=== PATIENT | female | born 2000 | race Caucasian/White ===

== ENCOUNTER 2021-03-26 12:20 | Inpatient (IN) | payer BC ==
--- NOTE | 2021-03-26 14:12 | ED ---
General Adult HPI - General Stated complaint: Mental Health Time Seen by Provider: 03/26/21 12:54 Source: patient, RN notes reviewed, old records reviewed - History of Present Illness Initial comments: 20-year-old female presenting for mental health evaluation. Patient has had suicidal thoughts. She has been hearing voices. She is accompanied by her mother and father. No physical complaints at this time but the patient states that several weeks ago she did have a fall. The exact details of this fall are not known but there may have been head trauma and family is requesting imaging. Patient denies suicide attempt. - Related Data Home Medications Medication Instructions Recorded Confirmed No Known Home Medications 03/26/21 03/26/21 Allergies Allergy/AdvReac Type Severity Reaction Status Date / Time eggplant Allergy Unknown Verified 03/26/21 14:46 nut - unspecified Allergy Unknown Verified 03/26/21 14:46 Review of Systems ROS Statement: Those systems with pertinent positive or pertinent negative responses have been documented in the HPI. ROS Other: All systems not noted in ROS Statement are negative. Past Medical History - Past Family History Mother Family Medical History: Hypertension General Exam General appearance: alert Head exam: Present: atraumatic, normocephalic Eye exam: Present: normal appearance, PERRL ENT exam: Present: normal exam Neck exam: Present: normal inspection. Absent: tenderness, meningismus Respiratory exam: Present: normal lung sounds bilaterally. Absent: respiratory distress, wheezes Cardiovascular Exam: Present: regular rate, normal rhythm GI/Abdominal exam: Present: soft. Absent: distended, tenderness, guarding Extremities exam: Present: normal inspection, normal capillary refill. Absent: pedal edema Neurological exam: Present: alert, oriented X3, CN II-XII intact. Absent: motor sensory deficit Psychiatric exam: Present: flat affect, suicidal ideation, other (Paranoid) Skin exam: Present: warm, dry, intact Course Vital Signs 03/26/21 03/26/21 14:01 19:27 Temperature 98.3 F Pulse Rate 70 Respiratory 18 18 Rate Blood Pressure 109/81 O2 Sat by Pulse 98 Oximetry - Reevaluation(s) Reevaluation #1: 03/26/21 1500 Patient's care is signed out to Dr. Reina at shift change awaiting EPS evaluation and recommendations. Medical Decision Making - Medical Decision Making By review the medical record it appears this patient was admitted to the psychiatric unit. - Lab Data Result diagrams: 03/28/21 11:09 03/28/21 11:09 Lab Results 03/26/21 03/26/21 Range/Units 13:48 13:48 Urine HCG, Qual Not Detected (Not Detectd) Urine Opiates Screen Not Detected (NotDetected) Ur Oxycodone Screen Not Detected (NotDetected) Urine Methadone Screen Not Detected (NotDetected) Ur Propoxyphene Screen Not Detected (NotDetected) Ur Barbiturates Screen Not Detected (NotDetected) U Tricyclic Antidepress Not Detected (NotDetected) Ur Phencyclidine Scrn Not Detected (NotDetected) Ur Amphetamines Screen Not Detected (NotDetected) U Methamphetamines Scrn Not Detected (NotDetected) U Benzodiazepines Scrn Not Detected (NotDetected) Urine Cocaine Screen Not Detected (NotDetected) U Marijuana (THC) Screen Detected H (NotDetected) Disposition Clinical Impression: Acute psychosis, Depression Disposition: ADMITTED IP TO THIS [facility] Condition: Stable Is patient prescribed a controlled substance at d/c from ED?: No
[2021-03-26 14:41] LABS: Phencyclidine Screen,Urine Not Detected (NotDetected); Urn Cannabinoid Scrn Detected (NotDetected)
[2021-03-26 14:42] LABS: Amphetamine Screen,Urine Not Detected (NotDetected); Barbiturate Screen,Urine Not Detected (NotDetected); Benzodiazepines Screen,Urine Not Detected (NotDetected); Cocaine Screen,Urine Not Detected (NotDetected); Methadone Screen, Urine Not Detected (NotDetected); Opiate Screen,Urine Not Detected (NotDetected); Oxycodone Screen, Urine Not Detected (NotDetected); Tricyclic Antidepressant,Urine Not Detected (NotDetected)
--- NOTE | 2021-03-26 17:30 | CT ---
EXAMINATION TYPE: CT brain wo con DATE OF EXAM: 03/26/2021 HISTORY: Mental health, Fall. CT DLP: 1023.4 mGycm. Automated Exposure Control for Dose Reduction was Utilized. TECHNIQUE: CT scan of the head is performed without contrast. COMPARISON: None FINDINGS: There is no acute intracranial hemorrhage, midline shift, or mass effect identified. No abnormal extr a-axial fluid collection. No ventriculomegaly. No depressed calvarial fracture. Paranasal sinuses and mastoid air cells are clear. IMPRESSION: No acute intracranial hemorrhage, midline shift, or mass effect.
[2021-03-27] MEDS ORDERED: MAG HYDROX/AL HYDROX/SIMETH 30 ML CUP PO PRN (00:02)
[2021-03-27] MEDS ORDERED: MAGNESIUM HYDROXIDE 2,400 MG/10 ML CUP PO PRN (00:02)
[2021-03-27] MEDS ORDERED: ACETAMINOPHEN TAB 325 MG TAB PO PRN (00:02)
[2021-03-27] MEDS ORDERED: LORazepam 2 MG/ML INJ IM PRN (00:04)
[2021-03-27] MEDS ORDERED: haloperidoL 5 MG TAB PO PRN (00:04)
[2021-03-27] MEDS ORDERED: HALOPERIDOL LACTATE 5 MG/ML 1 ML VIAL IM PRN (00:04)
[2021-03-27] MEDS: NICOTINE 14MG/24HR PATCH TRANSDERM SCH ×2 (03:52→08:16)
[2021-03-27] MEDS: LORazepam 1 MG TAB PO PRN (03:52)
[2021-03-27 14:34] VITALS: BMI 24.9
[2021-03-27 17:04] LABS: Basophils # (A) 0.1 k/uL (0-0.2); Basophils % (A) 1 %; Eosinophils # (A) 0.1 k/uL (0-0.7); Eosinophils % (A) 1 %; HCT 45.9 % (34.0-46.0); HGB 15.2 gm/dL (11.4-16.0); Lymphocytes # (A) 2.2 k/uL (1.0-4.8); Lymphocytes % (A) 24 %; MCH 28.3 pg (25.0-35.0); MCV 85.7 fL (80.0-100.0); Mean Platelet Volume 6.9; Monocytes # (A) 0.7 k/uL (0-1.0); Monocytes % (A) 8 %; Neutrophils # (A) 5.7 k/uL (1.3-7.7); Neutrophils % (A) 64 %; Platelet Count 348 k/uL (150-450); RBC 5.36 m/uL (3.80-5.40); RDW 13.6 % (11.5-15.5); WBC 8.9 k/uL (3.8-10.6)
[2021-03-27 17:24] LABS: ALT 17 U/L (4-34); AST 22 U/L (14-36); African American GFR (CKD) >90 (>60 ml/min/1.73 sqM); Albumin 4.7 g/dL (3.5-5.0); Alkaline Phosphatase 50 U/L (38-126); Anion Gap 11 mmol/L; Blood Urea Nitrogen 10 mg/dL (7-17); Calcium 9.9 mg/dL (8.4-10.2); Carbon Dioxide 27 mmol/L (22-30); Chloride 100 mmol/L (98-107); Glucose 99 mg/dL (74-99); Non-African American GFR(CKD) >90 (>60 ml/min/1.73 sqM); Potassium 4.4 mmol/L (3.5-5.1); Sodium 138 mmol/L (137-145); Total Bilirubin 1.2 mg/dL (0.2-1.3); Total Protein 7.7 g/dL (6.3-8.2)
[2021-03-27 17:38] LABS: T4, Free (Free Thyroxine) 1.17 ng/dL (0.78-2.19)
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
--- NOTE | 2021-03-27 21:04 | P.CONS ---
History of Present Illness - Reason for Consult Consult date: 03/27/21 - History of Present Illness The patient was seen and evaluated with the mental health unit RN. I was never alone with the patient. Patient is a 20-year-old female with a PMH of tobacco abuse and marijuana abuse who had presented to the emergency room due to hearing voices. The patient was admitted to the mental health unit where she was seen and evaluated. The patient reports that she has been having multiple voices that are telling her that she is worthless and that she should kill herself. She denied any suicide attempts and further denied any homicidal ideation. She denied any physical complaints. She denied chest discomfort, shortness of breath, fever, chills, cough, nausea, vomiting, abdominal pain, diarrhea. Reports vaping daily and smoking and rolled cigarettes as well. Also smokes marijuana daily. Denied any additional substance abuse. Denied alcohol use. Review of systems: Pertinent positives and negatives as discussed in HPI, a complete review of systems was performed and all other systems are negative. Physical examination: General: non toxic, no distress, appears at stated age, normal weight Derm: no unusual rashes/lesions no unusual ecchymoses, warm, dry Head: atraumatic, normocephalic, symmetric Eyes: EOMI, no lid lag, anicteric sclera, pupils equal round reactive to light ENT: Nose and ears atraumatic, no thrush, no pharyngeal erythema Neck: No thyromegaly, no cervical lymphadenopathy, trachea midline, supple Mouth: no lip lesion, mucus membranes moist Cardiovascular: S1S2 reg, no murmur, positive posterior tibial pulse bilateral, no edema, capillary refill less than 2 seconds Lungs: CTA bilateral, no rhonchi, no rales , no accessory muscle use Abdominal: soft, nontender to palpation, no guarding, no appreciable organomegaly, normal bowel sounds Ext: no gross muscle atrophy, muscle strength 5 out of 5 in all 4 extremities grossly, no contractures, Neuro: CN II-XI grossly intact, light touch intact all 4 extremities, finger to nose within normal limits, Psych: Alert, oriented, flat affect Assessment/plan Polysubstance abuse -Strongly advised on the dangers of vaping -Further advise on the importance of cessation from tobacco and marijuana use Psychosis with depression and suicidal ideation -As per psychiatry Thank you for allowing us to participate in the care of this patient. We will follow peripherally. Do not hesitate to contact us with questions. Someone can be reached from the [facility] hospitalist group at all hours of the day at [phone]. Past Medical History Past Medical History: No Reported History History of Any Multi-Drug Resistant Organisms: None Reported Past Surgical History: No Surgical Hx Reported Past Psychological History: Anxiety, Depression Smoking Status: Current every day smoker, Vaper Past Alcohol Use History: None Reported, Heavy Past Drug Use History: None Reported - Past Family History Mother Family Medical History: Hypertension Medications and Allergies Home Medications Medication Instructions Recorded Confirmed Type No Known Home Medications 03/26/21 03/26/21 History Allergies Allergy/AdvReac Type Severity Reaction Status Date / Time eggplant Allergy Unknown Verified 03/26/21 14:46 nut - unspecified Allergy Unknown Verified 03/26/21 14:46 Physical Exam Vitals: Vital Signs Temp Pulse Resp BP Pulse Ox 03/27/21 01:08 97.5 F L 96 18 119/55 96 Intake and Output 03/27/21 03/27/21 03/27/21 06:59 14:59 22:59 Other: Weight 70.1 kg 70.1 kg Results CBC & Chem 7: 03/27/21 16:35 03/27/21 16:35
[2021-03-28] MEDS: NICOTINE 14MG/24HR PATCH TRANSDERM SCH (08:28)
[2021-03-28 11:36] LABS: Basophils # (A) 0.1 k/uL (0-0.2); Basophils % (A) 1 %; Eosinophils # (A) 0.2 k/uL (0-0.7); Eosinophils % (A) 2 %; HCT 46.4 % (34.0-46.0); HGB 15.6 gm/dL (11.4-16.0); Lymphocytes # (A) 1.8 k/uL (1.0-4.8); Lymphocytes % (A) 19 %; MCH 28.9 pg (25.0-35.0); MCHC 33.6 g/dL (31.0-37.0); Mean Platelet Volume 7.4; Monocytes # (A) 0.7 k/uL (0-1.0); Monocytes % (A) 7 %; Neutrophils # (A) 6.5 k/uL (1.3-7.7); Neutrophils % (A) 69 %; Platelet Count 333 k/uL (150-450); RBC 5.39 m/uL (3.80-5.40); RDW 13.1 % (11.5-15.5); WBC 9.4 k/uL (3.8-10.6)
[2021-03-28 11:50] LABS: ALT 18 U/L (4-34); AST 22 U/L (14-36); African American GFR (CKD) >90 (>60 ml/min/1.73 sqM); Albumin 4.9 g/dL (3.5-5.0); Alkaline Phosphatase 56 U/L (38-126); Anion Gap 10 mmol/L; Blood Urea Nitrogen 13 mg/dL (7-17); Calcium 10.1 mg/dL (8.4-10.2); Carbon Dioxide 28 mmol/L (22-30); Chloride 101 mmol/L (98-107); Glucose 100 mg/dL (74-99); Non-African American GFR(CKD) >90 (>60 ml/min/1.73 sqM); Potassium 4.4 mmol/L (3.5-5.1); Sodium 139 mmol/L (137-145); Total Bilirubin 1.1 mg/dL (0.2-1.3)
--- NOTE | 2021-03-28 15:25 | PN ---
PROGRESS NOTE DATE OF SERVICE: 03/28/2021. CHIEF COMPLAINT: The patient was depressed. She had auditory hallucinations. She had a recent fall with possible head trauma. INTERVAL HISTORY: The patient has been doing fairly well. She had a quiet day yesterday. She comes out on the unit. She interacts with others. She has been appropriate in her interaction with staff and peers. She attended one group yesterday and seemed to find that it had some benefits for her. She slept fairly well last night. Today she has been up. She said that she has been processing information I discussed about medications and does think she needs to be on medications. It is noteworthy that when she came into the hospital when Nursing was doing their evaluation, she asked them to check her ears, nose and mouth for concerns that there might be some kind of electronics or other devices that may have been implanted to broadcast her thoughts. She said she has less thinking in that direction today, though then talked about she believed that she has quite intelligent friends who very likely could develop computer chips that could be implanted in the brain for just that effect. She says that she does not have clarity of thinking that that is just a delusion or outside the bounds of reality. She says she understands that other people might think it is "a crazy thought," though she acknowledges that she does have fears and worries about that particular situation. It is noteworthy that in the midst of that discussion, she stated that she does think that she likely needs medications to help address some of her issues with both thoughts and mood. She was able to discuss more in regard to her issues about gender identity. She states that she prefers using the pronoun "they" as opposed to "he" or "she." She was willing to initiate psychotropic medications. MENTAL STATUS: Patient sat with a little restlessness. She gave good eye contact. She answered questions appropriately. Her thoughts were clear, coherent and goal-directed. She was spontaneous and interactive. Her affect was in a reasonable range. She smiled some. It was noteworthy that she had a quite thoughtful manner and seemed to process information in a serious way. There were a few periods where she teared up during the interview when talking about issues in her life. Her mood was dysphoric. She did acknowledge that sometimes she can cover up some of her difficult mood and thoughts because she feels that how she acts and functions can cause others distress. She continues to make references towards psychotic thinking. She voiced no thoughts of harm. Cognition was clear. ASSESSMENT: I will continue the current diagnosis and treatment plan. I will start the patient on Zyprexa 5 mg twice a day. I had an extensive discussion with the patient regarding medication issues. I reviewed the indication for Zyprexa in regard to psychotic symptoms and also relating to help in reducing physiologic stress response relating to her high stress state and possible withdrawal symptoms she may have relating to stopping marijuana. I also reviewed issues regarding potential side effects such as increased appetite as well as longer-term concerns regarding metabolics and movement disorder issues. I discussed that it would be reasonable to consider also starting the patient on an antidepressant, though at this point it might be best for her to keep her medications simplified to see if she gets some benefit and improvement with Zyprexa. I discussed discharge planning issues with the patient. She very much was hoping to get a referral for individual psychotherapy in addition to being on medications. We will focus on stabilization and discharge planning. SHEEBA / KADIE: [id number] /
[2021-03-28 17:46] LABS: Chol/HDL Ratio 4.27; Cholesterol 128 mg/dL (0-200); LDL Cholesterol,Calculated 85.6 mg/dL (0.0-131.0)
[2021-03-28 22:04] LABS: Hemoglobin A1C 5.2 % (4.0-6.0)
[2021-03-28] MEDS: LORazepam 1 MG TAB PO PRN (22:45)
[2021-03-29 07:02] VITALS: RESP 16
[2021-03-29] MEDS: NICOTINE 14MG/24HR PATCH TRANSDERM SCH (08:53)
[2021-03-29] MEDS ORDERED: MELATONIN 3 MG TABLET PO PRN (11:16)
--- NOTE | 2021-03-29 11:22 | P.PN ---
Progress Note - Text Progress Note Date: 03/29/21 Interval History: Patient was seen laying in her bed today and was directable and agreeable to s peak with typewriter operator automatic in the office. Patient was slow to react and appeared to be depressed and tearful during the conversation. She was resistant at first to starting medications and to being in the hospital and asked about discharge today. She claims that she has been feeling suicidal and depressed lately and claims that the depression has gradually gotten worse. She states that she has been dealing with this for several years now. She states that recently she started hearing voices as her depression has gotten worse. She claims that they are mainly negative voices. She states that she has been using marijuana to cope at times smoking 1 joint every other day. She states that she does have some anxiety and her sleep has been "on and off". She states that she is willing to try medications at this point. She continues to have passive suicidal thoughts however no intent or plan today. She claims that she is still hearing voices. At this time patient denies any homical ideations, intent or plan. Patient denies any visual hallucinations and denies any delusions today. She claims that she was feeling paranoid before coming into the hospital and felt that someone might be after her note to hurt her. Mental Status Exam: General Appearance: Patient appears to be stated age is alert, short hair, directable, and attempts to cooperative. Tearful and appears to be upset. Behavior: Patient is calmly seated without any agitated behavior. Psychomotor retardation. Speech: Patient's speech is fluent and nonpressured. Soft tone. Wanda Mood/Affect: Mood is depressed and anxious, affect is congruent and tearful Suicidality/Homicidality: Patient denies having any homicidal ideation intent or plan. She admits to ongoing suicidal thoughts however no intent or plan Perceptions: Patient denies any visual hallucinations and admits to having auditory hallucinations. Though content/process: Wanda, poverty of content. Vague. Focused on discharge. Memory and concentration: AOX3, grossly intact for the purposes of this session Judgment and insight: Poor Assessment Major depressive disorder, severe, recurrent with psychotic features Cannabis use disorder mild Nicotine dependence Plan: -Patient continues to meet criteria for inpatient psychiatric admission for symptom stabilization and safety. Patient has signed adult voluntary form and medication consent and was placed in patient's chart. -Medications: Start Abilify 5 mg daily for mood adjunct/psychosis. Will add on Zoloft 50 mg daily starting tomorrow for mood/anxiety. Melatonin when necessary daily at bedtime for sleep. -When necessary Ativan and Haldol for agitation/aggression. -NRT - nicotine patch -SW on board for discharge planning. Encouraged the patient to participate in milieu.
[2021-03-29] MEDS: ARIPiprazole 5 MG TAB PO SCH (11:38)
[2021-03-30] MEDS: NICOTINE 14MG/24HR PATCH TRANSDERM SCH (08:25)
[2021-03-30] MEDS: ARIPiprazole 5 MG TAB PO SCH (08:25)
[2021-03-30] MEDS: SERTRALINE 50 MG TAB PO SCH (08:25)
--- NOTE | 2021-03-30 09:46 | P.PN ---
Progress Note - Text Progress Note Date: 03/30/21 Interval History: Patient was seen laying in her bed today and was directable and agreeable to s peak with check writer in the office. Patient appeared to be less depressed today however continues to have a constricted affect. she continuees to have a soft tone of voice but is more cooperative today and calmer. she states that her anxiety is improving mildly along with her mood today. she claims that the voices have decreased a bit today however still beleives that the nurses may be talking behind her back and is endorsing some mild paranoia. She claims that they are mainly negative voices. She states that she did not sleep well last night and had rpeated dreams and beelived "that there was probably a ghost in my room". She claims that she is taking her meds and is not reporting and side effects today. At this time patient denies any suicidal or homical ideations, intent or plan. Patient denies any visual hallucinations and denies any delusions today. Physical Medicine Teacher spoke with patients mother over the phone [phone]. She gave permission to speak with mother and give her updates. She was asking about treatment planning and had several questions about the medications. Physical Medicine Teacher addressed concerns and questions. Mental Status Exam: General Appearance: Patient appears to be stated age is alert, short hair, directable, and attempts to cooperative. constricted affect Behavior: Patient is calmly seated without any agitated behavior. Psychomotor retardation, improving Speech: Patient's speech is fluent and nonpressured. Soft tone, improving mildly Mood/Affect: Mood is depressed and anxious, improving mildly, affect is congruent and constricted Suicidality/Homicidality: Patient denies having any homicidal ideation intent or plan. She denies any suicidal thoughts today no intent or plan Perceptions: Patient denies any visual hallucinations and admits to having auditory hallucinations which are improving. Though content/process: [place], poverty of content. Vague. Focused on discharge. Memory and concentration: AOX3, grossly intact for the purposes of this session Judgment and insight: Poor, improving mildly Assessment: Major depressive disorder, severe, recurrent with psychotic features Cannabis use disorder mild Nicotine dependence Plan: -Patient continues to meet criteria for inpatient psychiatric admission for symptom stabilization and safety. Patient has signed adult voluntary form and medication consent and was placed in patient's chart. -Medications: Increase Abilify 7.5 mg daily for mood adjunct/psychosis. Continue Zoloft 50 mg daily for mood/anxiety. Melatonin 6 mg daily at bedtime for sleep. -When necessary Ativan and Haldol for agitation/aggression. -NRT - nicotine patch -SW on board for discharge planning. Encouraged the patient to participate in milieu. likely discharge in 2-3 days back home.
[2021-03-30] MEDS ORDERED: MELATONIN 3 MG TABLET PO SCH (21:00)
[2021-03-31 07:10] VITALS: BP 111/62; PULSE 89; TEMP 98.4
[2021-03-31] MEDS ORDERED: ARIPiprazole 5 MG TAB PO SCH (09:00)
[2021-03-31] MEDS: NICOTINE 14MG/24HR PATCH TRANSDERM SCH (09:04)
[2021-03-31] MEDS: SERTRALINE 50 MG TAB PO SCH (09:05)
--- NOTE | 2021-03-31 09:20 | P.PN ---
Progress Note - Text Progress Note Date: 03/31/21 Interval History: Patient was seen laying in her bed today and was directable and agreeable to speak with poem writer in the office. Patient appeared to be less depressed today and appeared to be happier when speaking with poem writer. She just finished taking her medications in the morning and was eating pudding. She states that she is fighting the medications have been helping her however still is superficial at times about her treatment. She claims that she has been speaking with her family however was fairly superficial and vague about what they talk about. She claims that her father will be visiting her today. She states that she is feeling less paranoid today about the nurses and "other people outside". She states that she did not sleep well last night only 1-2 hours and was agreeable to take trazodone tonight. She claims that she is taking her meds and is not reporting and side effects today. At this time patient denies any suicidal or homical ideations, intent or plan. Patient denies any visual hallucinations and denies any delusions today. She claims that she is not hearing any voices today. Mental Status Exam: General Appearance: Patient appears to be stated age is alert, short hair, directable, and attempts to cooperative. constricted affect Behavior: Patient is calmly seated without any agitated behavior. Speech: Patient's speech is fluent and nonpressured. Soft tone, improving mildly Mood/Affect: Mood is depressed and anxious, improving mildly, affect is con gruent and constricted Suicidality/Homicidality: Patient denies having any homicidal ideation intent or plan. She denies any suicidal thoughts today no intent or plan Perceptions: Patient denies any visual hallucinations and currently denies any auditory hallucinations. Though content/process: Superficial at times. Vague. Focused on discharge Memory and concentration: AOX3, grossly intact for the purposes of this session Judgment and insight: improving mildly Assessment: Major depressive disorder, severe, recurrent with psychotic features Cannabis use disorder mild Nicotine dependence Plan: -Patient continues to meet criteria for inpatient psychiatric admission for symptom stabilization and safety. Patient has signed adult voluntary form and medication consent and was placed in patient's chart. -Medications: Increase Abilify 10 mg daily for mood adjunct/psychosis. Continue Zoloft 50 mg daily for mood/anxiety. Discontinue melatonin replaced with trazodone 50 mg daily at bedtime for sleep/mood. -When necessary Ativan and Haldol for agitation/aggression. -NRT - nicotine patch -SW on board for discharge planning. Encouraged the patient to participate in milieu. likely discharge her back home tomorrow vs monday. Patient's father will be visiting her today.
[2021-03-31] MEDS ORDERED: traZODone HCL 50 MG TAB PO SCH (21:00)
[2021-04-01] MEDS: SERTRALINE 50 MG TAB PO SCH (08:02)
[2021-04-01] MEDS: NICOTINE 14MG/24HR PATCH TRANSDERM SCH (08:02)
[2021-04-01] MEDS ORDERED: ARIPiprazole 10 MG TAB PO SCH (09:00)
--- NOTE | 2021-04-01 10:28 | P.DS ---
Providers Date of admission: 03/26/21 23:18 Expected date of discharge: 04/01/21 Attending physician: Ant Rodrigues MD Consults: 03/27/21 00:02 Consult Physician Routine Consulting Provider: Aleksandar Physician Consult Reason/Comments: H&P and medical Do you want consulting provider notified?: Yes Primary care physician: Stated None - Discharge Diagnosis(es) (1) Major depressive disorder, recurrent, severe with psychotic features Current Visit: Yes Status: Acute Priority: High (2) Cannabis use disorder, mild, abuse Current Visit: Yes Status: Acute Priority: Medium (3) Nicotine dependence Current Visit: Yes Status: Acute Priority: Low Hospital Course: Admission HPI: Admission note was completed by Dr. Lowery and summarized as follows. The patient is a 20-year-old female who currently resides with her parents and came to the ED for depression and auditory hallucinations. The patient has not had a prior psychiatric hospitalization or been in any significant outpatient mental health treatment in the past. She is not on any psychotropic medications. She spoke about depression going back to the age of 16 or 17. Patient was previously at [facility] and had to stop formal classes in September 2019 due to covid. The patient did suggest that there was some ongoing conflicts between the mother and father. Patient claimed that her depression has been getting worse for the past month. She did not identify any specific triggers. Apparently patient has been becoming more delusional talking frantically that people were wanting to kill her and that she believed people at work were talking about her. She has had poor sleep and has had a poor appetite. Energy motivation and interest have been down. She does note that she was having auditory hallucinations however was vague about the specifics. Hospital course: Upon admission to the unit patient was initially psychotic and depressed/anxious. Patient was however directable and agreeable to commence treatment and signed adult voluntary form. Patient got along well with other patients on the unit and followed unit protocol. Patient was compliant with the medications and denied any side effects throughout hospital course. Patient was started on Abilify and titrate up the dose of 10 mg daily for mood stabilization/psychosis, Zoloft 50 mg daily for mood/anxiety, trazodone 50 mg daily at bedtime for sleep/mood. Patient spoke of her stressors and engaged in therapy both group and individual. Patient was also seen by medical team for history and physical exam. Patient had a computed tomography scan of her head on 03/26 which did not show any acute intracranial hemorrhage or midline shift or mass effect. Throughout the course of the hospitalization patient gradually improved with regards to mood, anxiety, psychosis, sleep and became more future oriented with improved insight and judgment. On the day of discharge patient denied any suicidal or homicidal ideations intent or plan denied any auditory or visual hallucinations. Patient endorsed wanting to live for her future and her f amily. The patient denied any access to guns or weapons. Patient denied any paranoia and did not endorse any delusions. Patient does have a significant history of substance abuse and was counseled on abstaining from all substances including alcohol and marijuana. Patient elected to do outpatient substance use treatment program through [facility]. Patient was also counseled on the medications and need for regular compliance and was encouraged to follow-up with their outpatient appointment for mental health and also for primary care. Prior to discharge a family meeting will be arranged by residential support worker to answer any questions and ensure safety upon discharge. Collator Hand also spoke with patient's family over the phone to talk about her treatment medications and answer other questions relating to her diagnosis and follow-up. Encouraged family and patient to avoid cannabis as it most likely has been a trigger or precipitant for her psychosis and mental health condition Mental status exam: General Appearance: Patient appears to be stated age is alert, pleasant, and cooperative. Patient is in no acute distress and has improved hygiene and grooming Behavior: Patient is calmly seated without any agitated behavior. Speech: Patient's speech is fluent and nonpressured. Mood/Affect: Patient reports their mood is "good", affect is congruent and euthymic. Suicidality/Homicidality: Patient denies having any suicidal or homicidal ideation intent or plan. Perceptions: Patient denies any auditory or visual hallucinations. Though content/process: There is no evidence of any delusional thought content and thought process is linear and goal-directed. more future oriented Memory and concentration: AOX3, grossly intact for the purposes of this session. Can spell "WORLD" backwards correctly. Judgment and insight: chronically poor, however has improved with guarded prognosis Impression: Major depressive disorder, severe, recurrent with psychotic features cannabis use disorder, mild nicotine dependence Plan: -Continue with discharge today as patient has improved and stabilized psychiatrically and is not currently an imminent threat to herself and/or others. -Continue medications: Abilify 10mg daily for mood stabilization/psychosis, zoloft 50 mg daily for anxiety/mood, trazodone 50 mg qhs for sleep/mood. -Patient was counseled on the need for medication compliance and appropriate follow-up at mental health and also primary care for medical issues. Patient verbalized understanding and agreed. -Social work to arrange for and conduct family meeting to ensure safety upon discharge and answer any questions/concerns. Collator Hand also spoke with patient's family today prior to discharge over the phone to discuss treatment and care and also follow-up and also answer questions regarding medication. Social work also to arrange for patients follow up appointments with [facility] for psychiatric care along with follow up with primary care provider. -Patient counseled on abstaining from recreational drugs and marijuana and alcohol. Was informed/educated on the adverse effects on their physical and mental health. Patient verbally agreed and understood. -Patient was instructed to return to the hospital or seek immediate medical care if their psychiatric or medical symptoms do worsen or reoccur. Allergies Allergy/AdvReac Type Severity Reaction Status Date / Time eggplant Allergy Unknown Verified 03/26/21 14:46 nut - unspecified Allergy Unknown Verified 03/26/21 14:46 Laboratory Results WBC 9.4 k/uL (3.8-10.6) 03/28/21 11:09 RBC 5.39 m/uL (3.80-5.40) 03/28/21 11:09 Hgb 15.6 gm/dL (11.4-16.0) 03/28/21 11:09 Hct 46.4 % (34.0-46.0) H 03/28/21 11:09 MCV 86.0 fL (80.0-100.0) 03/28/21 11:09 MCH 28.9 pg (25.0-35.0) 03/28/21 11:09 MCHC 33.6 g/dL (31.0-37.0) 03/28/21 11:09 RDW 13.1 % (11.5-15.5) 03/28/21 11:09 Plt Count 333 k/uL (150-450) 03/28/21 11:09 MPV 7.4 03/28/21 11:09 Neutrophils % 69 % 03/28/21 11:09 Lymphocytes % 19 % 03/28/21 11:09 Monocytes % 7 % 03/28/21 11:09 Eosinophils % 2 % 03/28/21 11:09 Basophils % 1 % 03/28/21 11:09 Neutrophils # 6.5 k/uL (1.3-7.7) 03/28/21 11:09 Lymphocytes # 1.8 k/uL (1.0-4.8) 03/28/21 11:09 Monocytes # 0.7 k/uL (0-1.0) 03/28/21 11:09 Eosinophils # 0.2 k/uL (0-0.7) 03/28/21 11:09 Basophils # 0.1 k/uL (0-0.2) 03/28/21 11:09 Sodium 139 mmol/L (137-145) 03/28/21 11:09 Potassium 4.4 mmol/L (3.5-5.1) 03/28/21 11:09 Chloride 101 mmol/L (98-107) 03/28/21 11:09 Carbon Dioxide 28 mmol/L (22-30) 03/28/21 11:09 Anion Gap 10 mmol/L 03/28/21 11:09 BUN 13 mg/dL (7-17) 03/28/21 11:09 Creatinine 0.66 mg/dL (0.52-1.04) 03/28/21 11:09 Est GFR (CKD-EPI)AfAm >90 (>60 ml/min/1.73 sqM) 03/28/21 11:09 Est GFR (CKD-EPI)NonAf >90 (>60 ml/min/1.73 sqM) 03/28/21 11:09 Glucose 100 mg/dL (74-99) H 03/28/21 11:[address] Glu mg/dL 103 03/28/21 11:09 Hemoglobin A1c 5.2 % (4.0-6.0) 03/28/21 11:09 Calcium 10.1 mg/dL (8.4-10.2) 03/28/21 11:09 Total Bilirubin 1.1 mg/dL (0.2-1.3) 03/28/21 11:09 AST 22 U/L (14-36) 03/28/21 11:09 ALT 18 U/L (4-34) 03/28/21 11:09 Alkaline Phosphatase 56 U/L (38-126) 03/28/21 11:09 Total Protein 8.0 g/dL (6.3-8.2) 03/28/21 11:09 Albumin 4.9 g/dL (3.5-5.0) 03/28/21 11:09 Triglycerides 62.0 mg/dL (0.0-149.0) 03/28/21 11:09 Cholesterol 128 mg/dL (0-200) 03/28/21 11:09 LDL Cholesterol, Calc 85.6 mg/dL (0.0-131.0) 03/28/21 11:09 VLDL Cholesterol, Calc 12.40 mg/dL (5.00-40.00) 03/28/21 11:09 HDL Cholesterol 30.0 mg/dL (40.0-60.0) L 03/28/21 11:09 Cholesterol/HDL Ratio 4.27 03/28/21 11:09 TSH 0.875 mIU/L (0.465-4.680) 03/28/21 11:09 Free T4 1.17 ng/dL (0.78-2.19) 03/27/21 16:35 Urine HCG, Qual Not Detected (Not Detectd) 03/26/21 13:48 Urine Opiates Screen Not Detected (NotDetected) 03/26/21 13:48 Ur Oxycodone Screen Not Detected (NotDetected) 03/26/21 13:48 Urine Methadone Screen Not Detected (NotDetected) 03/26/21 13:48 Ur Propoxyphene Screen Not Detected (NotDetected) 03/26/21 13:48 Ur Barbiturates Screen Not Detected (NotDetected) 03/26/21 13:48 U Tricyclic Antidepress Not Detected (NotDetected) 03/26/21 13:48 Ur Phencyclidine Scrn Not Detected (NotDetected) 03/26/21 13:48 Ur Amphetamines Screen Not Detected (NotDetected) 03/26/21 13:48 U Methamphetamines Scrn Not Detected (NotDetected) 03/26/21 13:48 U Benzodiazepines Scrn Not Detected (NotDetected) 03/26/21 13:48 Urine Cocaine Screen Not Detected (NotDetected) 03/26/21 13:48 U Marijuana (THC) Screen Detected (NotDetected) H 03/26/21 13:48 Coronavirus (PCR) Not Detected (Not Detectd) 03/26/21 23:39 Vital Signs Temp 98.4 F 03/31/21 06:37 Pulse 89 03/31/21 06:37 Resp 16 03/31/21 06:37 BP 111/62 03/31/21 06:37 Pulse Ox 96 03/27/21 01:08 Patient Condition at Discharge: Stable Plan - Discharge Summary Discharge Rx Participant: No New Discharge Prescriptions: New ARIPiprazole [Abilify] 10 mg PO DAILY 30 Days tab traZODone HCL [Desyrel] 50 mg PO HS 30 Days tab Sertraline [Zoloft] 50 mg PO DAILY 30 Days tab Nicotine 14Mg/24Hr Patch [Habitrol] 1 patch TRANSDERM DAILY 14 Days patch Discharge Medication List ARIPiprazole [Abilify] 10 mg PO DAILY 30 Days tab 04/01/21 [Rx] Nicotine 14Mg/24Hr Patch [Habitrol] 1 patch TRANSDERM DAILY 14 Days patch 04/01/21 [Rx] Sertraline [Zoloft] 50 mg PO DAILY 30 Days tab 04/01/21 [Rx] traZODone HCL [Desyrel] 50 mg PO HS 30 Days tab 04/01/21 [Rx] Follow up Appointment(s)/Referral(s): None,Stated [Primary Care Provider] - 1-2 days Activity/Diet/Wound Care/Special Instructions: Activity and diet as tolerated. Avoid the use of street drugs and alcohol. Take all medications as prescribed. When you are in need of refills on your medications please contact your medical provider and/or outpatient psychiatrist to have this done. Please go to scheduled outpatient appointment for aftercare treatment. If symptoms return or become worse, call the crisis line at and/or go to the nearest emergency room for evaluation. Discharge Disposition: HOME SELF-CARE
== END 2021-04-01 12:10 | disposition home or self-care (01) | DRG 885 ==
LOC: EC 12:20 → 3MHU 23:18
PROVIDERS: ADMIT Psychiatry & Neurology Psychiatry; ATTEND Psychiatry & Neurology Psychiatry
DX: F33.3 Major depressive disorder, recurrent, severe with psychotic symptoms (principal); R45.851 Suicidal ideations; F12.10 Cannabis abuse, uncomplicated; S09.90XA Unspecified injury of head, initial encounter; F41.9 Anxiety disorder, unspecified; Z20.822 Contact with and (suspected) exposure to COVID-19; F17.210 Nicotine dependence, cigarettes, uncomplicated; F17.290 Nicotine dependence, other tobacco product, uncomplicated; Z71.6 Tobacco abuse counseling; Z91.81 History of falling; Z91.018 Allergy to other foods; Z82.49 Family history of ischemic heart disease and other diseases of the circulatory system
CPT/HCPCS: 70450; 80053; 80061; 80306; 81025; 82075; 83036; 84439; 84443; 85025; 87635; 99285